=== PATIENT | female | born 2000 | race Caucasian/White ===

== ENCOUNTER 2020-04-03 15:50 | Emergency (ER) | payer MEDICAID ==
[~2020-04-03] VITALS: Ht 154.9 cm; Wt 49.9 kg
[2020-04-03 16:16] VITALS: Ht 154.9 cm; Wt 49.9 kg
[2020-04-03 17:18] LABS: PLATELET COUNT 328 x10^3mcL (130-400)
[2020-04-03 17:42] LABS: CALCIUM 9.5 mg/dL (8.5-10.1); CARBON DIOXIDE 26.1 mmol/L (21-32); CHLORIDE SERUM 100 mmol/L (98-107); CREATININE SERUM 1.1 mg/dL (0.6-1.0); GFR1 > 60 mL/min; GLUCOSE SERUM 144 mg/dL (74-106); SODIUM SERUM 133 mmol/L (136-145)
[2020-04-03 17:46] LABS: ALBUMIN 4.9 g/dL (3.4-5.0); ALKALINE PHOSPHATASE 76 U/L (46-116); ALT/SGPT 48 U/L (14-59); AST/SGOT 37 U/L (15-37); BILIRUBIN TOTAL 0.4 mg/dL (0.20-1.00)
[2020-04-03 17:47] LABS: TOTAL PROTEIN, SERUM 8.8 g/dL (6.4-8.2)
[2020-04-03 17:54] LABS: BAND NEUTROPHIL 4 % (0-10); MONOCYTE 6 % (0-7); SEGMENTED NEUTROPHILS 86 % (37-75)
[2020-04-03 17:55] LABS: PLATELET MORPHOLOGY PLATELETS NORMAL; rbc morphology (normal/abnorm) NORMAL (NORMAL)
[2020-04-03 17:59] LABS: AMPHETAMINE QUAL UR NONE DETECTED (See below)
[2020-04-03 18:03] VITALS: BP 105/67
== END 2020-04-03 18:31 | disposition home or self-care (01) ==
LOC: ED 15:50
PROVIDERS: Emergency Medicine
DX: T42.4X1A Poisoning by benzodiazepines, accidental (unintentional), initial encounter (principal); Y92.89 Other specified places as the place of occurrence of the external cause
CPT/HCPCS: G0480